=== PATIENT | male | born 1985 | race Two or more races ===

== ENCOUNTER 2022-11-12 13:14 | Emergency (ER) | payer MEDICAID, OTHER ==
[~2022-11-12] VITALS: Ht 190.5 cm; Wt 105.0 kg
[2022-11-12 14:47] LABS: Urine Bacteria NONE SEEN /hpf (None Seen); Urine Blood Negative /uL (Negative); Urine Hyaline Cast FEW /lpf (0 - 2); Urine Mucus FEW (None Seen); Urine Specific Gravity 1.031 (1.001-1.035); Urine WBC 2 /hpf (0 - 3)
[2022-11-12 14:59] VITALS: BP 137/93
[2022-11-12] MEDS ORDERED: KETOROLAC TROMETH 60MG/2ML VIAL IM ONE (15:15)
[2022-11-12] MEDS ORDERED: IBUP800T26 PO (15:59)
[2022-11-12] MEDS ORDERED: HYDR-4798 PO (15:59)
== END 2022-11-12 16:04 | disposition home or self-care (01) ==
LOC: ER 13:14
DX: M47.816 Spondylosis without myelopathy or radiculopathy, lumbar region (principal); M54.42 Lumbago with sciatica, left side; M54.41 Lumbago with sciatica, right side
CPT/HCPCS: 81001; 96372; 99283; J1885